=== PATIENT | male | born 1940 | race Caucasian/White ===

== ENCOUNTER → 2016-06-13 | Outpatient (CLI) | payer MEDICARE, OTHER ==
[~2016-06-13] MED LIST: ACIP20TA19 PO; ALBU1AER INH; ALLO100T PO; BUME1TAB PO; CALCTAB23 PO; COLC1TAB7 PO; COUM4TAB7 PO; FERR325T PO; FISH1000 PO; GLIM2 PO; METO50TA11 PO; SIMV10 PO; SPIR50 PO; SYMB160A INH; TAB-TAB PO; TAMS0.4C67 PO; VITA20002 PO; VITA500C PO
[2016-06-13 10:49] LABS: INTERNATIONAL NORMALIZED RATIO 2.7 RATIO; PROTHROMBIN TIME - PATIENT 31.1 SEC (9.8-11.6)
[2016-06-13 12:38] LABS: BICARBONATE 21.5 MEQ/L (21.0-32.0)
[2016-06-13 12:54] LABS: POTASSIUM 6.8 MEQ/L (3.5-5.1)
== END ==
LOC: PLAB 10:09
PROVIDERS: ATTEND Internal Medicine Interventional Cardiology
DX: I48.2 Chronic atrial fibrillation (principal)
CPT/HCPCS: 36415; 80048; 85610

== ENCOUNTER → 2016-06-18 | Outpatient (CLI) | payer MEDICARE, OTHER ==
[2016-06-18 10:25] LABS: POTASSIUM 5.7 MEQ/L (3.5-5.1)
[2016-06-18 10:30] LABS: BICARBONATE 23.7 MEQ/L (21.0-32.0)
== END ==
LOC: PLAB 09:19
PROVIDERS: ATTEND Internal Medicine Interventional Cardiology
DX: E87.5 Hyperkalemia (principal)
CPT/HCPCS: 36415; 80048

== ENCOUNTER → 2016-07-10 | Outpatient (CLI) | payer MEDICARE, OTHER ==
[2016-07-10 11:08] LABS: INTERNATIONAL NORMALIZED RATIO 2.5 RATIO; PROTHROMBIN TIME - PATIENT 29.1 SEC (9.8-11.6)
[2016-07-10 13:24] LABS: ANION GAP 6 MEQ/L (5-15); AST (GOT) 26 U/L (15-37); BICARBONATE 27.2 MEQ/L (21.0-32.0); BLOOD UREA NITROGEN 21 MG/DL (7-18); CHLORIDE 106 MEQ/L (98-107); GLOMERULAR FILTRATION RATE 60 ML/MIN (>89); GLUCOSE,FASTING 82 MG/DL (74-99); POTASSIUM 4.1 MEQ/L (3.5-5.1); SODIUM (NA) 139 MEQ/L (136-145)
[2016-07-10 13:25] LABS: HEMATOCRIT 33.4 % (39.0-51.0); MEAN CELL VOLUME 92.7 FL (80.0-100.0); MEAN CORPUSCULAR HEMOGLOBIN 31.6 PG (27.0-34.0); MEAN CORPUSCULAR HGB CONC 34.1 % (32.0-36.0); PLATELET COUNT 183 TH/MM3 (150-450); RED CELL DISTRIBUTION WIDTH 13.7 % (11.6-17.2); REVIEW FLAG FINAL; WHITE BLOOD COUNT 4.2 TH/MM3 (4.0-11.0)
[2016-07-10 13:44] LABS: ALKALINE PHOSPHATASE 136 U/L (45-117); ALT (GPT) 30 U/L (12-78); LDL CHOLESTEROL 42 MG/DL (0-99); TOTAL BILIRUBIN ADULT 0.7 MG/DL (0.2-1.0)
[2016-07-10 15:32] LABS: HEMOGLOBIN Ao 83.4 %; HEMOGLOBIN LA1C 2.3 %; HEMOGLOBIN P3 6.3 %
== END ==
LOC: PLAB 10:13
PROVIDERS: ATTEND Internal Medicine Interventional Cardiology
DX: E87.5 Hyperkalemia (principal); I42.0 Dilated cardiomyopathy; I27.2 Other secondary pulmonary hypertension; R06.02 Shortness of breath; I48.2 Chronic atrial fibrillation; R19.7 Diarrhea, unspecified; E11.9 Type 2 diabetes mellitus without complications; E78.5 Hyperlipidemia, unspecified; Q27.30 Arteriovenous malformation, site unspecified; I10 Essential (primary) hypertension; I48.91 Unspecified atrial fibrillation; Z98.890 Other specified postprocedural states; E66.09 Other obesity due to excess calories
CPT/HCPCS: 36415; 80053; 80061; 83036; 84443; 85027; 85610

== ENCOUNTER → 2016-08-06 | Outpatient (CLI) | payer MEDICARE, OTHER ==
[2016-08-06 12:54] LABS: INTERNATIONAL NORMALIZED RATIO 2.6 RATIO; PROTHROMBIN TIME - PATIENT 29.9 SEC (9.8-11.6)
== END ==
LOC: PLAB 10:47
PROVIDERS: ATTEND Internal Medicine Interventional Cardiology
DX: I48.2 Chronic atrial fibrillation (principal)
CPT/HCPCS: 36415; 85610

== ENCOUNTER → 2016-08-21 | Outpatient (CLI) | payer MEDICARE, OTHER ==
[2016-08-21 13:14] LABS: HEMATOCRIT 33.1 % (39.0-51.0); MEAN CELL VOLUME 92.1 FL (80.0-100.0); MEAN CORPUSCULAR HEMOGLOBIN 29.5 PG (27.0-34.0); PLATELET COUNT 200 TH/MM3 (150-450); RED BLOOD COUNT 3.59 MIL/MM3 (4.50-5.90); RED CELL DISTRIBUTION WIDTH 14.3 % (11.6-17.2); REVIEW FLAG FINAL; WHITE BLOOD COUNT 6.6 TH/MM3 (4.0-11.0)
[2016-08-21 13:39] LABS: ANION GAP 8 MEQ/L (5-15); AST (GOT) 22 U/L (15-37); BICARBONATE 29.5 MEQ/L (21.0-32.0); BLOOD UREA NITROGEN 58 MG/DL (7-18); CHLORIDE 103 MEQ/L (98-107); GLOMERULAR FILTRATION RATE 43 ML/MIN (>89); GLUCOSE,FASTING 102 MG/DL (74-99); POTASSIUM 3.7 MEQ/L (3.5-5.1); SODIUM (NA) 140 MEQ/L (136-145)
[2016-08-21 13:49] LABS: ALKALINE PHOSPHATASE 106 U/L (45-117); ALT (GPT) 23 U/L (12-78); HDL CHOLESTEROL 43.1 MG/DL (40.0-60.0); LDL CHOLESTEROL 38 MG/DL (0-99); LDL CHOLESTEROL DIRECT 49 MG/DL (0-99); TOTAL BILIRUBIN ADULT 0.7 MG/DL (0.2-1.0)
[2016-08-21 15:51] LABS: HEMOGLOBIN A1a 1.1 %; HEMOGLOBIN A1b 0.7 %; HEMOGLOBIN Ao 84.4 %; HEMOGLOBIN F 1.1 %; HEMOGLOBIN LA1C 2.3 %; HEMOGLOBIN P3 5.9 %
== END ==
LOC: PLAB 11:34
PROVIDERS: ATTEND Internal Medicine Interventional Cardiology
DX: I50.43 Acute on chronic combined systolic (congestive) and diastolic (congestive) heart failure (principal); R06.02 Shortness of breath; C61 Malignant neoplasm of prostate; A08.11 Acute gastroenteropathy due to Norwalk agent; E11.9 Type 2 diabetes mellitus without complications; M79.604 Pain in right leg; E78.5 Hyperlipidemia, unspecified; I48.91 Unspecified atrial fibrillation; I27.2 Other secondary pulmonary hypertension; R05 Cough; Z68.32 Body mass index [BMI] 32.0-32.9, adult
CPT/HCPCS: 36415; 80053; 80061; 83036; 83721; 84153; 84443; 85027

== ENCOUNTER → 2016-09-04 | Outpatient (CLI) | payer MEDICARE, OTHER ==
[2016-09-04 14:39] LABS: INTERNATIONAL NORMALIZED RATIO 2.6 RATIO; PROTHROMBIN TIME - PATIENT 30.4 SEC (9.8-11.6)
== END ==
LOC: PLAB 13:27
PROVIDERS: ATTEND Internal Medicine Interventional Cardiology
DX: I48.2 Chronic atrial fibrillation (principal)
CPT/HCPCS: 36415; 85610

== ENCOUNTER → 2016-10-03 | Outpatient (CLI) | payer MEDICARE, OTHER ==
[2016-10-03 16:25] LABS: INTERNATIONAL NORMALIZED RATIO 1.9 RATIO
== END ==
LOC: PLAB 15:47
PROVIDERS: ATTEND Internal Medicine Interventional Cardiology
DX: I48.2 Chronic atrial fibrillation (principal); Z79.01 Long term (current) use of anticoagulants
CPT/HCPCS: 36415; 85610

== ENCOUNTER → 2016-10-18 | Outpatient (CLI) | payer MEDICARE, OTHER ==
[2016-10-18 10:33] LABS: INTERNATIONAL NORMALIZED RATIO 2.4 RATIO; PROTHROMBIN TIME - PATIENT 27.7 SEC (9.8-11.6)
== END ==
LOC: PLAB 08:09
PROVIDERS: ATTEND Internal Medicine Interventional Cardiology
DX: I48.2 Chronic atrial fibrillation (principal); Z79.01 Long term (current) use of anticoagulants
CPT/HCPCS: 36415; 85610

== ENCOUNTER → 2016-11-05 | Outpatient (CLI) | payer MEDICARE, OTHER ==
[2016-11-05 13:05] LABS: HEMATOCRIT 37.4 % (39.0-51.0); MEAN CELL VOLUME 87.6 FL (80.0-100.0); MEAN CORPUSCULAR HEMOGLOBIN 29.6 PG (27.0-34.0); MEAN CORPUSCULAR HGB CONC 33.8 % (32.0-36.0); PLATELET COUNT 189 TH/MM3 (150-450); RED BLOOD COUNT 4.27 MIL/MM3 (4.50-5.90); RED CELL DISTRIBUTION WIDTH 14.9 % (11.6-17.2); REVIEW FLAG FINAL; WHITE BLOOD COUNT 7.1 TH/MM3 (4.0-11.0)
[2016-11-05 13:14] LABS: ANION GAP 7 MEQ/L (5-15); AST (GOT) 26 U/L (15-37); BICARBONATE 33.4 MEQ/L (21.0-32.0); BLOOD UREA NITROGEN 66 MG/DL (7-18); CHLORIDE 97 MEQ/L (98-107); GLOMERULAR FILTRATION RATE 29 ML/MIN (>89); GLUCOSE,FASTING 98 MG/DL (74-99); SODIUM (NA) 137 MEQ/L (136-145)
[2016-11-05 13:19] LABS: ALKALINE PHOSPHATASE 113 U/L (45-117); ALT (GPT) 42 U/L (12-78); HDL CHOLESTEROL 36.1 MG/DL (40.0-60.0); LDL CHOLESTEROL 60 MG/DL (0-99); TOTAL BILIRUBIN ADULT 0.6 MG/DL (0.2-1.0)
[2016-11-05 17:49] LABS: HEMOGLOBIN A1a 1.3 %; HEMOGLOBIN A1b 0.8 %; HEMOGLOBIN F 1.4 %; HEMOGLOBIN LA1C 2.4 %; HEMOGLOBIN P3 6.9 %
== END ==
LOC: PLAB 10:10
PROVIDERS: ATTEND Family Medicine
DX: R19.7 Diarrhea, unspecified (principal)
CPT/HCPCS: 36415; 80053; 80061; 83036; 84443; 85027

== ENCOUNTER → 2016-11-15 | Outpatient (CLI) | payer MEDICARE, OTHER ==
[2016-11-15 13:25] LABS: INTERNATIONAL NORMALIZED RATIO 3.4 RATIO; PROTHROMBIN TIME - PATIENT 39.7 SEC (9.8-11.6)
== END ==
LOC: CLAB 12:48
PROVIDERS: ATTEND Internal Medicine Interventional Cardiology
DX: I48.2 Chronic atrial fibrillation (principal); Z79.01 Long term (current) use of anticoagulants
CPT/HCPCS: 36415; 85610

== ENCOUNTER → 2016-11-27 | Outpatient (CLI) | payer MEDICARE, OTHER ==
[2016-11-27 15:28] LABS: PROTHROMBIN TIME - PATIENT 22.7 SEC (9.8-11.6)
== END ==
LOC: PLAB 13:29
PROVIDERS: ATTEND Internal Medicine Interventional Cardiology
DX: I48.2 Chronic atrial fibrillation (principal)
CPT/HCPCS: 36415; 85610

== ENCOUNTER → 2016-12-17 | Outpatient (CLI) | payer MEDICARE, OTHER ==
[2016-12-17 10:41] LABS: INTERNATIONAL NORMALIZED RATIO 1.9 RATIO; PROTHROMBIN TIME - PATIENT 21.7 SEC (9.8-11.6)
[2016-12-17 10:53] LABS: BICARBONATE 26.2 MEQ/L (21.0-32.0); POTASSIUM 4.5 MEQ/L (3.5-5.1)
== END ==
LOC: CLAB 10:03
PROVIDERS: ATTEND Internal Medicine Interventional Cardiology
DX: I42.0 Dilated cardiomyopathy (principal); R60.0 Localized edema; E11.9 Type 2 diabetes mellitus without complications; I50.22 Chronic systolic (congestive) heart failure; I48.2 Chronic atrial fibrillation; Z79.01 Long term (current) use of anticoagulants
CPT/HCPCS: 36415; 80048; 85610

== ENCOUNTER → 2017-01-01 | Outpatient (CLI) | payer MEDICARE, OTHER ==
[2017-01-01 09:57] LABS: INTERNATIONAL NORMALIZED RATIO 2.1 RATIO; PROTHROMBIN TIME - PATIENT 24.1 SEC (9.8-11.6)
== END ==
LOC: PLAB 08:49
PROVIDERS: ATTEND Internal Medicine Interventional Cardiology
DX: I48.2 Chronic atrial fibrillation (principal); Z79.01 Long term (current) use of anticoagulants
CPT/HCPCS: 36415; 85610

== ENCOUNTER → 2017-01-22 | Outpatient (CLI) | payer MEDICARE, OTHER ==
[2017-01-22 12:57] LABS: INTERNATIONAL NORMALIZED RATIO 1.8 RATIO; PROTHROMBIN TIME - PATIENT 20.9 SEC (9.8-11.6)
== END ==
LOC: PLAB 11:12
PROVIDERS: ATTEND Internal Medicine Interventional Cardiology
DX: I48.2 Chronic atrial fibrillation (principal); Z79.01 Long term (current) use of anticoagulants
CPT/HCPCS: 36415; 85610

== ENCOUNTER → 2017-02-05 | Outpatient (CLI) | payer MEDICARE, OTHER ==
[2017-02-05 15:41] LABS: INTERNATIONAL NORMALIZED RATIO 1.5 RATIO; PROTHROMBIN TIME - PATIENT 16.6 SEC (9.8-11.6)
== END ==
LOC: PLAB 14:55
PROVIDERS: ATTEND Internal Medicine Interventional Cardiology
DX: I48.2 Chronic atrial fibrillation (principal); Z79.01 Long term (current) use of anticoagulants
CPT/HCPCS: 36415; 85610

== ENCOUNTER → 2017-02-19 | Outpatient (CLI) | payer MEDICARE, OTHER ==
[2017-02-19 11:23] LABS: INTERNATIONAL NORMALIZED RATIO 2.8 RATIO; PROTHROMBIN TIME - PATIENT 32.9 SEC (9.8-11.6)
== END ==
LOC: PLAB 10:25
PROVIDERS: ATTEND Internal Medicine Interventional Cardiology
DX: I48.2 Chronic atrial fibrillation (principal); Z79.01 Long term (current) use of anticoagulants
CPT/HCPCS: 36415; 85610

== ENCOUNTER → 2017-03-04 | Outpatient (CLI) | payer MEDICARE, OTHER ==
[2017-03-04 12:45] LABS: INTERNATIONAL NORMALIZED RATIO 2.1 RATIO; PROTHROMBIN TIME - PATIENT 24.4 SEC (9.8-11.6)
[2017-03-04 14:05] LABS: HDL CHOLESTEROL 46.1 MG/DL (40.0-60.0)
== END ==
LOC: PLAB 09:54
PROVIDERS: ATTEND Internal Medicine Interventional Cardiology
DX: I42.0 Dilated cardiomyopathy (principal); I48.2 Chronic atrial fibrillation; R60.0 Localized edema; E11.9 Type 2 diabetes mellitus without complications; E78.00 Pure hypercholesterolemia, unspecified; Z79.01 Long term (current) use of anticoagulants
CPT/HCPCS: 36415; 80061; 84450; 84460; 85610

== ENCOUNTER → 2017-03-20 | Outpatient (CLI) | payer MEDICARE, OTHER ==
[2017-03-20 12:02] LABS: INTERNATIONAL NORMALIZED RATIO 1.9 RATIO; PROTHROMBIN TIME - PATIENT 22.1 SEC (9.8-11.6)
[2017-03-20 13:32] LABS: AUTOMATED NEUTROPHIL # 4.1 TH/MM3 (1.8-7.7); BASOPHIL # 0.1 TH/MM3 (0-0.2); BASOPHIL % 0.8 % (0.0-2.0); EOSINOPHIL # 0.3 TH/MM3 (0-0.4); EOSINOPHIL % 5.4 % (0.0-4.0); HEMATOCRIT 39.1 % (39.0-51.0); HEMO FLAGS DIFF FINAL; LYMPH % 20.7 % (9.0-44.0); LYMPHOCYTE # 1.3 TH/MM3 (1.0-4.8); MEAN CELL VOLUME 95.4 FL (80.0-100.0); MEAN CORPUSCULAR HEMOGLOBIN 32.2 PG (27.0-34.0); MEAN CORPUSCULAR HGB CONC 33.8 % (32.0-36.0); MONO % 9.4 % (0.0-8.0); NEUT % 63.7 % (16.0-70.0); PLATELET COUNT 168 TH/MM3 (150-450); RED CELL DISTRIBUTION WIDTH 13.6 % (11.6-17.2); WHITE BLOOD COUNT 6.5 TH/MM3 (4.0-11.0)
[2017-03-20 13:39] LABS: ALT (GPT) 32 U/L (12-78); ANION GAP 5 MEQ/L (5-15); AST (GOT) 22 U/L (15-37); BICARBONATE 28.4 MEQ/L (21.0-32.0); BLOOD UREA NITROGEN 46 MG/DL (7-18); CHLORIDE 106 MEQ/L (98-107); GLOMERULAR FILTRATION RATE 47 ML/MIN (>89); GLUCOSE,FASTING 91 MG/DL (74-99); POTASSIUM 4.7 MEQ/L (3.5-5.1); SODIUM (NA) 139 MEQ/L (136-145)
[2017-03-20 13:50] LABS: ALKALINE PHOSPHATASE 108 U/L (45-117); HDL CHOLESTEROL 44.3 MG/DL (40.0-60.0); LDL CHOLESTEROL 48 MG/DL (0-99); TOTAL BILIRUBIN ADULT 0.4 MG/DL (0.2-1.0)
[2017-03-20 16:00] LABS: HEMOGLOBIN A1a 1.2 %; HEMOGLOBIN A1b 0.7 %; HEMOGLOBIN Ao 84.2 %; HEMOGLOBIN F 1.1 %; HEMOGLOBIN LA1C 2.3 %
== END ==
LOC: PLAB 10:34
PROVIDERS: ATTEND Internal Medicine Interventional Cardiology
DX: E11.9 Type 2 diabetes mellitus without complications (principal); M79.604 Pain in right leg; I27.20 Pulmonary hypertension, unspecified; E78.5 Hyperlipidemia, unspecified; I48.91 Unspecified atrial fibrillation; I50.22 Chronic systolic (congestive) heart failure; Z77.098 Contact with and (suspected) exposure to other hazardous, chiefly nonmedicinal, chemicals; Z79.01 Long term (current) use of anticoagulants; Z79.899 Other long term (current) drug therapy; Z68.32 Body mass index [BMI] 32.0-32.9, adult
CPT/HCPCS: 36415; 80053; 80061; 83036; 84443; 85025; 85610

== ENCOUNTER → 2017-04-03 | Outpatient (CLI) | payer MEDICARE, OTHER ==
[2017-04-03 10:40] LABS: INTERNATIONAL NORMALIZED RATIO 2.3 RATIO; PROTHROMBIN TIME - PATIENT 26.3 SEC (9.8-11.6)
== END ==
LOC: PLAB 09:47
PROVIDERS: ATTEND Internal Medicine Interventional Cardiology
DX: I48.2 Chronic atrial fibrillation (principal); Z79.01 Long term (current) use of anticoagulants
CPT/HCPCS: 36415; 85610

== ENCOUNTER → 2017-05-01 | Outpatient (CLI) | payer MEDICARE, OTHER ==
[2017-05-01 10:19] LABS: INTERNATIONAL NORMALIZED RATIO 2.2 RATIO; PROTHROMBIN TIME - PATIENT 25.1 SEC (9.8-11.6)
== END ==
LOC: PLAB 09:35
PROVIDERS: ATTEND Internal Medicine Interventional Cardiology
DX: I48.2 Chronic atrial fibrillation (principal); Z79.01 Long term (current) use of anticoagulants
CPT/HCPCS: 36415; 85610

== ENCOUNTER → 2017-05-21 | Outpatient (CLI) | payer MEDICARE, OTHER ==
[2017-05-21 12:51] LABS: INTERNATIONAL NORMALIZED RATIO 2.7 RATIO; PROTHROMBIN TIME - PATIENT 27.3 SEC (9.8-11.6)
== END ==
LOC: PLAB 11:32
PROVIDERS: ATTEND Internal Medicine Interventional Cardiology
DX: I48.2 Chronic atrial fibrillation (principal); Z79.01 Long term (current) use of anticoagulants
CPT/HCPCS: 36415; 85610

== ENCOUNTER → 2017-06-19 | Outpatient (CLI) | payer MEDICARE, OTHER ==
[2017-06-19 10:53] LABS: INTERNATIONAL NORMALIZED RATIO 2.7 RATIO; PROTHROMBIN TIME - PATIENT 27.4 SEC (9.8-11.6)
[2017-06-19 13:59] LABS: BICARBONATE 30.9 MEQ/L (21.0-32.0); CALCIUM 9.2 MG/DL (8.5-10.1); CREATININE 1.81 MG/DL (0.60-1.30); MAGNESIUM 2.4 MG/DL (1.5-2.5)
== END ==
LOC: PLAB 09:28
PROVIDERS: ATTEND Internal Medicine Interventional Cardiology
DX: I42.0 Dilated cardiomyopathy (principal); I50.22 Chronic systolic (congestive) heart failure; I48.2 Chronic atrial fibrillation; Z79.01 Long term (current) use of anticoagulants
CPT/HCPCS: 36415; 80048; 83735; 85610

== ENCOUNTER → 2017-07-24 | Outpatient (CLI) | payer MEDICARE, OTHER ==
[2017-07-24 13:46] LABS: INTERNATIONAL NORMALIZED RATIO 3.4 RATIO; PROTHROMBIN TIME - PATIENT 34.6 SEC (9.8-11.6)
== END ==
LOC: PLAB 12:10
PROVIDERS: ATTEND Internal Medicine Interventional Cardiology
DX: I48.2 Chronic atrial fibrillation (principal); Z79.01 Long term (current) use of anticoagulants
CPT/HCPCS: 36415; 85610

== ENCOUNTER → 2017-07-31 | Outpatient (CLI) | payer MEDICARE, OTHER ==
[2017-07-31 12:08] LABS: INTERNATIONAL NORMALIZED RATIO 2.3 RATIO; PROTHROMBIN TIME - PATIENT 23.7 SEC (9.8-11.6)
== END ==
LOC: PLAB 08:55
PROVIDERS: ATTEND Internal Medicine Interventional Cardiology
DX: I48.2 Chronic atrial fibrillation (principal); Z79.01 Long term (current) use of anticoagulants
CPT/HCPCS: 36415; 85610

== ENCOUNTER → 2017-08-09 | Outpatient (CLI) | payer MEDICARE, OTHER ==
[2017-08-09 14:55] LABS: HEMATOCRIT 34.9 % (39.0-51.0); HEMOGLOBIN 11.4 GM/DL (13.0-17.0); MEAN CORPUSCULAR HGB CONC 32.6 % (32.0-36.0); MEAN PLATELET VOLUME 8.4 FL (7.0-11.0); PLATELET COUNT 184 TH/MM3 (150-450); RED CELL DISTRIBUTION WIDTH 13.3 % (11.6-17.2); WHITE BLOOD COUNT 7.1 TH/MM3 (4.0-11.0)
[2017-08-09 15:13] LABS: BICARBONATE 36.4 MEQ/L (21.0-32.0); CALCIUM 9.7 MG/DL (8.5-10.1); CREATININE 1.76 MG/DL (0.60-1.30)
[2017-08-09 15:16] LABS: CHOLESTEROL/ HDL RATIO 2.91 RATIO; HDL CHOLESTEROL 32.9 MG/DL (40.0-60.0)
== END ==
LOC: PLAB 11:52
PROVIDERS: ATTEND Urology
DX: I42.0 Dilated cardiomyopathy (principal); I10 Essential (primary) hypertension; I50.22 Chronic systolic (congestive) heart failure; Z12.5 Encounter for screening for malignant neoplasm of prostate
CPT/HCPCS: 36415; 80048; 80061; 84450; 84460; 85027; G0103

== ENCOUNTER → 2017-08-28 | Outpatient (CLI) | payer MEDICARE, OTHER ==
[2017-08-28 09:39] LABS: INTERNATIONAL NORMALIZED RATIO 2.4 RATIO; PROTHROMBIN TIME - PATIENT 24.1 SEC (9.8-11.6)
== END ==
LOC: PLAB 08:57
PROVIDERS: ATTEND Internal Medicine Interventional Cardiology
DX: I48.2 Chronic atrial fibrillation (principal); Z79.01 Long term (current) use of anticoagulants
CPT/HCPCS: 36415; 85610

== ENCOUNTER → 2017-09-27 | Outpatient (CLI) | payer MEDICARE, OTHER ==
[2017-09-27 11:37] LABS: INTERNATIONAL NORMALIZED RATIO 2.5 RATIO; PROTHROMBIN TIME - PATIENT 25.4 SEC (9.8-11.6)
[2017-09-27 15:50] LABS: BICARBONATE 28.6 MEQ/L (21.0-32.0); CALCIUM 9.5 MG/DL (8.5-10.1); CREATININE 2.21 MG/DL (0.60-1.30)
== END ==
LOC: PLAB 10:38
PROVIDERS: ATTEND Internal Medicine Interventional Cardiology
DX: I48.2 Chronic atrial fibrillation (principal); Z79.899 Other long term (current) drug therapy; Z79.01 Long term (current) use of anticoagulants
CPT/HCPCS: 36415; 80048; 85610